=== PATIENT | male | born 1975 | race Caucasian/White ===

== ENCOUNTER 2017-03-26 03:41 | Emergency (ER) | payer BC ==
[~2017-03-26] VITALS: Ht 180.3 cm; Wt 85.0 kg
[2017-03-26 03:42] VITALS: BP 125/82; PULSE 78; RESP 18; TEMP 98.3; O2SAT 99
[2017-03-26 04:02] VITALS: BP 136/81; PULSE 74; RESP 24; TEMP 98.1; O2SAT 100
[2017-03-26] MEDS ORDERED: DICY10 PO (04:07)
[2017-03-26] MEDS ORDERED: ONDA4TAB7 SL (04:07)
[2017-03-26 04:30] LABS: AUTOMATED NEUTROPHIL # 5.7 TH/MM3 (1.8-7.7); BASOPHIL # 0.1 TH/MM3 (0-0.2); BASOPHIL % 0.8 % (0.0-2.0); EOSINOPHIL # 0.2 TH/MM3 (0-0.4); EOSINOPHIL % 2.6 % (0.0-4.0); HEMOGLOBIN 16.9 GM/DL (13.0-17.0); LYMPH % 27.4 % (9.0-44.0); LYMPHOCYTE # 2.5 TH/MM3 (1.0-4.8); MEAN CELL VOLUME 93.2 FL (80.0-100.0); MEAN CORPUSCULAR HEMOGLOBIN 32.1 PG (27.0-34.0); MEAN CORPUSCULAR HGB CONC 34.4 % (32.0-36.0); MEAN PLATELET VOLUME 8.9 FL (7.0-11.0); MONO % 6.9 % (0.0-8.0); MONOCYTE # 0.6 TH/MM3 (0-0.9); NEUT % 62.3 % (16.0-70.0); PLATELET COUNT 215 TH/MM3 (150-450); RED BLOOD COUNT 5.26 MIL/MM3 (4.50-5.90); RED CELL DISTRIBUTION WIDTH 13.6 % (11.6-17.2); WHITE BLOOD COUNT 9.1 TH/MM3 (4.0-11.0)
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
[2017-03-26 04:45] LABS: ALKALINE PHOSPHATASE 73 U/L (45-117); TOTAL BILIRUBIN ADULT 0.3 MG/DL (0.2-1.0); TOTAL PROTEIN 7.6 GM/DL (6.4-8.2)
[2017-03-26] MEDS ORDERED: KETOROLAC TROMETHAMINE 30 MG/ML (IVP) VIAL IV PUSH ONE (04:45)
[2017-03-26] MEDS ORDERED: SODIUM CHLOR 0.9% 1000 ML INJ 1,000 ML IV ONE (04:45)
[2017-03-26 04:51] LABS: ALBUMIN 3.9 GM/DL (3.4-5.0); ALT (GPT) 37 U/L (12-78); AST (GOT) 30 U/L (15-37); BLOOD UREA NITROGEN 15 MG/DL (7-18); CALCIUM 8.8 MG/DL (8.5-10.1); CHLORIDE 106 MEQ/L (98-107); CREATININE 1.03 MG/DL (0.60-1.30); GLOMERULAR FILTRATION RATE 80 ML/MIN (>89); GLUCOSE,RANDOM 105 MG/DL (74-106); LIPASE 143 U/L (73-393); SODIUM (NA) 142 MEQ/L (136-145)
[2017-03-26] MEDS ORDERED: HYDROmorphone HCL PF 2 MG/ML VIAL IV PUSH ONE ×2 (05:00→05:15)
[2017-03-26 05:23] VITALS: BP 111/74; PULSE 79; RESP 20; O2SAT 98
--- NOTE | 2017-03-26 08:49 | RADRPT ---
EXAM DATE/TIME: 03/26/2017 07:53 [facility] COMPARISON: No previous studies available for comparison. INDICATIONS : Right upper quadrant pain. MEDICAL HISTORY : Gallstones. Acute cholecystitis, 2 days ago. SURGICAL HISTORY : Traumatic liver surgery, age 4. ENCOUNTER: Initial ACUITY: 2 months PAIN SCORE: 7/10 LOCATION: Right upper quadrant MEASUREMENTS: LIVER: 16.4 cm length COMMON DUCT: 5 mm RIGHT KIDNEY: 11.4 x 5.9 x 6.7 cm FINDINGS: LIVER: Normal echotexture without focal lesion or ductal dilatation. COMMON DUCT: No intraluminal mass or stone visualized. GALLBLADDER: Sludge filled with scattered echogenic foci possibly representing a tumefactive component or small st ones. No gallbladder wall thickening or pericholecystic fluid. PANCREAS: Obscured by overlying bowel gas. RIGHT KIDNEY: No evidence of hydronephrosis, stone, or mass. CONCLUSION: 1. Sludge filled gallbladder with scattered echogenic foci possibly representing a tumefactive compon ent or small stones. No gallbladder wall thickening or pericholecystic fluid, however. 2. Pancreas is obscured by overlying bowel gas. 3. Otherwise negative. Jt Dinero MD on March 26, 2017 at 8:45 Board Certified Radiologist. This report was verified electronically.
--- NOTE | 2017-03-26 09:23 | PD ---
Physical Exam Narrative GENERAL: Well-nourished, well-developed patient. SKIN: Warm and dry. HEAD: Normocephalic and atraumatic. EYES: No injection or drainage. ENT: No nasal drainage noted. NECK: Supple, trachea midline. CARDIOVASCULAR: Regular rate and rhythm RESPIRATORY: No increased effort. No accessory muscle use. GASTROINTESTINAL: Abdomen soft, non-tender, nondistended. EXTREMITIES: No edema. NEUROLOGICAL: Awake and alert. Moves all extremities and sensory grossly within normal limits. Normal speech. Data Data Last Documented VS Vital Signs Date Time Temp Pulse Resp B/P (MAP) Pulse Ox O2 Delivery O2 Flow Rate FiO2 03/26/17 05:23 79 20 111/74 (86) 98 Room Air 03/26/17 04:02 98.1 Orders Orders Complete Blood Count With Diff (03/26/17 04:03) Comprehensive Metabolic Panel (03/26/17 04:03) Lipase (03/26/17 04:03) Ketorolac Inj (Toradol Inj) (03/26/17 04:45) Sodium Chlor 0.9% 1000 Ml Inj (Ns 1000 M (03/26/17 04:45) Hydromorphone Pf Inj (Dilaudid Pf Inj) (03/26/17 05:00) Hydromorphone Pf Inj (Dilaudid Pf Inj) (03/26/17 05:15) Us Abdomen Gallbladder (03/26/17 ) Ed Discharge Order (03/26/17 09:19) Labs Laboratory Tests Test 03/26/17 04:10 White Blood Count 9.1 TH/MM3 Red Blood Count 5.26 MIL/MM3 Hemoglobin 16.9 GM/DL Hematocrit 49.0 % Mean Corpuscular Volume 93.2 FL Mean Corpuscular Hemoglobin 32.1 PG Mean Corpuscular Hemoglobin Concent 34.4 % Red Cell Distribution Width 13.6 % Platelet Count 215 TH/MM3 Mean Platelet Volume 8.9 FL Neutrophils (%) (Auto) 62.3 % Lymphocytes (%) (Auto) 27.4 % Monocytes (%) (Auto) 6.9 % Eosinophils (%) (Auto) 2.6 % Basophils (%) (Auto) 0.8 % Neutrophils # (Auto) 5.7 TH/MM3 Lymphocytes # (Auto) 2.5 TH/MM3 Monocytes # (Auto) 0.6 TH/MM3 Eosinophils # (Auto) 0.2 TH/MM3 Basophils # (Auto) 0.1 TH/MM3 CBC Comment DIFF FINAL Differential Comment Blood Urea Nitrogen 15 MG/DL Creatinine 1.03 MG/DL Random Glucose 105 MG/DL Total Protein 7.6 GM/DL Albumin 3.9 GM/DL Calcium Level 8.8 MG/DL Alkaline Phosphatase 73 U/L Aspartate Amino Transf (AST/SGOT) 30 U/L Alanine Aminotransferase (ALT/SGPT) 37 U/L Total Bilirubin 0.3 MG/DL Sodium Level 142 MEQ/L Potassium Level 4.1 MEQ/L Chloride Level 106 MEQ/L Carbon Dioxide Level 30.0 MEQ/L Anion Gap 6 MEQ/L Estimat Glomerular Filtration Rate 80 ML/MIN Lipase 143 U/L MDM Supervised Visit with RACHEL: No Interpretation(s) CBC & BMP Diagram 03/26/17 04:10 Total Protein 7.6, Albumin 3.9, Calcium Level 8.8, Alkaline Phosphatase 73, Aspartate Amino Transf (AST/SGOT) 30, Alanine Aminotransferase (ALT/SGPT) 37, Total Bilirubin 0.3 Last 24 hours Impressions Gall Bladder Ultrasound 03/26/17 0000 Signed Impressions: Service Date/Time: February 07:53 - CONCLUSION: 1. Sludge filled gallbladder with scattered echogenic foci possibly representing a tumefactive component or small stones. No gallbladder wall thickening or pericholecystic fluid, however. 2. Pancreas is obscured by overlying bowel gas. 3. Otherwise negative. Jt Dinero MD Narrative Course Signed over to follow ultrasound and reevaluate. Ultrasound shows stones with sludge without pericholecystic fluid or gallbladder wall thickening. Patient has needed no additional narcotic medication since my arrival. On reexamination patient is nontender. Patient is wanting to go home. Advised patient close follow-up with Gen. surgery as an outpatient. Given return instructions. He is in agreement to the plan. Diagnosis Primary Impression: Gallstone Qualified Codes: K80.20 - Calculus of gallbladder without cholecystitis without obstruction Patient Instructions: General Instructions, Gallstones (ED), Abdominal Pain (ED ) Additional Instruction: return as needed, follow with general surgeon this week, tylenol as needed Med/Other Pt SpecificInfo: No Change to Meds Disposition: 01 DISCHARGE HOME Condition: Stable Genny Zacarias MD Mar 26, 2017 09:23
== END 2017-03-26 09:33 | disposition home or self-care (01) ==
LOC: NEPE 03:41
DX: K80.20 Calculus of gallbladder without cholecystitis without obstruction (principal); Z72.0 Tobacco use
CPT/HCPCS: 76705; 80053; 83690; 85025; 96361; 96374; 96375; 99285; J1170; J1885; J7030